=== PATIENT | female | born 1980 | race Caucasian/White ===

== ENCOUNTER 2020-09-01 09:20 | Day surgery (SDC) | payer SELFPAY, OTHER ==
--- NOTE | 2020-08-30 12:20 | PCM.HP.BLA ---
History and Physical Date of Admission: 09/01/20 Pre-Op History and Physical ? HPI: The patient is a 40 year old female presenting for question regarding surgical management for endometrial simple hyperplasia. Patient underwent a hysteroscopy, D&C, Hattie ablation in May 2020 the pathology specimen from that shows simple hyperplasia. Patient was counseled regarding inability to resample the endometrium after an ablation and consultation with [facility] oncology recommends proceeding with a hysterectomy for definitive therapy. ? She is scheduled for LAVH and bilateral salpingectomy, cystoscopy, for simple endometrial hyperplasia status post endometrial ablation on 09/01/20. Procedure discussed along with risks, benefits and complications. Other alternatives discussed for management. Consent form signed? Yes. ? ? PAST MEDICAL HISTORY PAST MEDICAL HISTORY Diagnosis Date ? Allergic rhinitis ? ? Depression with anxiety 03/08/2010 ? GERD (gastroesophageal reflux disease) ? ? Migraine with aura 03/08/2010 ? Morbid obesity with BMI of 50.0-59.9, adult (HCC) ? ? ROSIE (obstructive sleep apnea) 07/31/2018 ? DME [employer] ? ? PAST SURGICAL HISTORY PAST SURGICAL HISTORY Procedure Laterality Date ? D&C, DIAG AND/OR THERAPEUTIC ? 09/22/2001 ? Dilation & curettage ? D&C, DIAG AND/OR THERAPEUTIC ? 06/02/2020 ? HYSTEROSCOPY,W/ENDOMETRIAL ABLATION ? 06/02/2020 ? Hattie ablation ? REMOVAL GALLBLADDER ? ? ? Cholecystectomy ? ? ? CURRENT MEDICATIONS Current Outpatient Medications Medication Sig Dispense Refill ? ibuprofen (MOTRIN) 800 mg tablet Take 1 tablet by mouth every 8 hours as needed for Pain. Take with food. 60 tablet 3 ? omeprazole (PRILOSEC) 40 mg capsule Take 1 capsule by mouth once daily as needed. As directed 30 capsule 1 ? cyclobenzaprine (FLEXERIL) 10 mg tablet Take 1 tablet by mouth three times daily as needed for Muscle Spasm. 24 tablet 0 ? norethindrone (AYGESTIN) 5 mg tablet Take 2 tablets by mouth once daily. 60 tablet 5 ? valACYclovir (VALTREX) 1 gram tab Take 2 tablets by mouth q 12 HR. for 2 doses. 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 CPAP New set up: Settings 5 - 20 cm H2O, suitable mask per pt preference, chin strap, head gear, humidity, tubing, lifetime supplies. G47.33 Obstructive Sleep Apnea 1 Device 0 ? oxyCODONE-acetaminophen (PERCOCET) 5-325 mg tablet Take 1 tablet by mouth every 6 hours as needed for up to 5 days. FOR PAIN. 10 tablet 0 ? simethicone, chewable (MYLICON) 80 mg chewable tablet Take 1 tablet by mouth every 6 hours as needed. 30 tablet 0 ? docusate sodium (COLACE) 100 mg capsule Take 1 capsule by mouth twice daily. 60 capsule 2 ? No current facility-administered medications for this visit. ? ? ALLERGIES: Patient has no known allergies. ? PERSONAL HISTORY: SOCIAL HISTORY Social History ? Tobacco Use ? Smoking status: Current Every Day Smoker ? ? Packs/day: 0.50 ? ? Types: Cigarettes ? ? Start date: 04/26/2018 ? Smokeless tobacco: Never Used ? Tobacco comment: Working on quitting smoking Vaping Use ? Vaping Use: Never used Substance Use Topics ? Alcohol use: No ? Drug use: No ? FAMILY HISTORY: FAMILY HISTORY FAMILY HISTORY Problem Relation Age of Onset ? Diabetes Maternal Grandfather ? ? other ([place]SONS) Paternal Grandfather ? ? Diabetes Maternal Grandmother ? ? Hypertension Maternal Grandmother ? ? Diabetes Mother ? ? Hypertension Mother ? ? Diabetes Father ? ? other (Dementia) Father ? ? Front Temperal ? Heart Maternal Uncle ? ? NE ? Diabetes Maternal Uncle ? ? ? REVIEW OF SYMPTOMS: negative except as noted above PHYSICAL EXAMINATION: ? VITALS: Blood pressure 128/84, height 5' 3 (1.6 m), weight 236 lb (107 kg), last menstrual period 04/26/2020. ? GENERAL: The patient is well nourished, well hydrated in no acute distress. , The patient is oriented to time, place, and person. NECK: Supple. No lynphadenopathy, normal thyroid, no thyromegaly. LUNGS: Clear to auscultation bilaterally. no wheezes, rhonchi or rales HEART: Regular rate and rhythm, Normal heart sounds and No murmurs or gallops GENITALIA: deferred ? IMPRESSION: Simple endometrial hyperplasia s/p endometrial ablation ? PLAN: LAVH, Bilateral salpingectomy, cystoscopy ? Medicaid hysterectomy consent signed- pt verbalized understanding that this would make her sterile with no future childbearing capabilities. ? Pt has been counseled on risks/benefits and alternatives of surgery including but not limited to anesthesia, bleeding, infection, injury to pelvic structures including bowel, bladder, ureters and vessels. Pt wishes to proceed with surgery at this time. ? 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 ? ? I have reviewed and updated past medical and surgical history, medications and allergies Ro Vásquez MD ? 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 Signed Encounter Date: 08/03/2020 Expand AllCollapse All Expand All by Default Hide copied text Hover for details Pre-Op History and Physical ? HPI: The patient is a 40 year old female presenting for pre-operative visit. She is scheduled for Hysteroscopy, Hattie Ablation, laparoscopic bilateral salpingectomy with removal of essure coils, for AUB, heavy menses and desires removal of essure coils on 09/01/20. Procedure discussed along with risks, benefits and complications. Other alternatives discussed for management. Consent form signed? Yes. ? ? PAST MEDICAL HISTORY PAST MEDICAL HISTORY Diagnosis Date ? Anemia ? ? WITH ? Spontaneous without mention of complication 04/07/2007 ? Miscarriage ? Varicosities ? ? RIGHT LEG ? ? PAST SURGICAL HISTORY PAST SURGICAL HISTORY Procedure Laterality Date ? DELIVERY ONLY ? 10/28/13 ? , low transverse ? D&C, DIAG AND/OR THERAPEUTIC ? 03/27, 04/07/2007 ? Dilation & curettage ? ESSURE ? 2013 ? REM LESION FACE,EAR,EYEL <5MM ? 09/04/13 ? Exc. indu cyst nasal bridge ? ? ? CURRENT MEDICATIONS Current Outpatient Medications Medication Sig Dispense Refill ? ferrous sulfate (IRON) 325 mg (65 mg iron) tablet Take 2 tablets by mouth every other day. Take with source of vitamin C (Patient taking differently: As Needed ) 60 tablet 2 ? norgestimate 0.25 mg-ethinyl estradiol 35 mcg (SPRINTEC) 0.25-35 mg-mcg per tablet Take 1 tablet by mouth once daily. 1 Package 11 ? CALCIUM CARBONATE/VITAMIN D3 (CALCIUM + D ORAL) Take by mouth once daily. ? ? ? MULTIVITAMIN ORAL Take by mouth. ? ? ? ibuprofen (MOTRIN) 600 mg tablet Take 1 tablet by mouth every 6 hours as needed. 30 tablet 0 ? simethicone, chewable (MYLICON) 80 mg chewable tablet Take 1 tablet by mouth every 6 hours as needed. 30 tablet 0 ? No current facility-administered medications for this visit. ? ? ALLERGIES: Patient has no known allergies. ? PERSONAL HISTORY: SOCIAL HISTORY Social History ? Tobacco Use ? Smoking status: Never Smoker ? Smokeless tobacco: Never Used Vaping Use ? Vaping Use: Never used Substance Use Topics ? Alcohol use: No ? Drug use: No ? FAMILY HISTORY: FAMILY HISTORY FAMILY HISTORY Problem Relation Age of Onset ? No Known Problems Mother ? ? Hysterectomy ? Lipids Father ? ? Cancer Father ? ? Skin ? No Known Problems Brother ? ? No Known Problems Brother ? ? No Known Problems Brother ? ? No Known Problems Brother ? ? No Known Problems Sister ? ? Cancer Maternal Grandmother ? ? Skin ? No Known Problems Daughter ? ? No Known Problems Daughter ? ? No Known Problems Son ? ? No Known Problems Daughter ? ? No Known Problems Daughter ? ? Cancer Maternal Uncle ? ? Cancer Paternal Uncle ? ? BRAIN CANCER ? No Known Problems Son ? ? ? REVIEW OF SYMPTOMS: negative except as noted above PHYSICAL EXAMINATION: ? VITALS: Blood pressure 122/78, weight 166 lb (75.3 kg), last menstrual period 07/24/2020. ? GENERAL: The patient is well nourished, well hydrated in no acute distress. , The patient is oriented to time, place, and person. NECK: full range of motion GENITALIA: Normal external genitalia, Urethral meatus normal, Bladder nontender, normal vagina and normal vaginal tone, normal cervix, normal WET PREP: Not indicated ? IMPRESSION: AUB, heavy menses, essure coils in place ? PLAN: Hysteroscopy, Hattie endometrial ablation, laparoscopic bilateral salpingectomy with removal of essure coils ? Pt has been counseled on risks/benefits and alternatives of surgery including but not limited to anesthesia, bleeding, infection, injury to pelvic structures including bowel, bladder, ureters and vessels. Pt wishes to proceed with surgery at this time.Reviewed possible failure of Ablation procedure. ? Declines further hormonal therapy Covid testing reviewed- has not been vaccinated PRE OP consent signed Post op meds ordered EMB pending ? ? ? I have reviewed and updated past medical and surgical history, medications and allergies Ro Vásquez MD Office Visit on 08/03/2020 Office Visit on 08/03/2020 Note shared with patient
[2020-08-31 09:56] LABS: Hematocrit 38.3 % (37-47); Hemoglobin 12.7 g/dL (12.0-15.0); Mean Corp Hgb Conc 33.2 g/dL (32-36); Mean Corpuscular Hgb 28.4 pg (27.0-32.0); Mean Corpuscular Volume 85.7 fL (81-99); Mean Platelet Vol. 9.4 fl (6.2-12.0); Platelet Count 293 K/mm3 (150-450); RBC Distribution Width SD 40.7 fl (35.1-43.9); Red Blood Count 4.47 M/mm3 (4.2-5.4); White Blood Count 6.4 K/mm3 (4.4-11.0)
[2020-09-01] VITALS (7 sets, daily range): BP systolic 108–129; BP diastolic 72–92; PULSE 55–83; RESP 16–18; TEMP 36.1–36.6; O2SAT 100; BMI 29.9
[2020-09-01 10:00] LABS: Internal QC Validated? YES +Cl - CLEAR BKGD; Pregnancy, Urine Negative Negative
[2020-09-01] MEDS: Lactated Ringers 1,000 ML 100 ML IV (10:16)
--- NOTE | 2020-09-01 10:36 | PCM.HP.BLA ---
History and Physical Date of Admission: 09/01/20 re-Op History and Physical HPI: The patient is a 40 year old female presenting for pre-operative visit. She is scheduled for Hysteroscopy, Hattie Ablation, laparoscopic bilateral salpingectomy with removal of essure coils, for AUB, heavy menses and desires removal of essure coils on 09/01/20. Procedure discussed along with risks, benefits and complications. Other alternatives discussed for management. Consent form signed? Yes. PAST MEDICAL HISTORY PAST MEDICAL HISTORY Diagnosis Date ? Anemia WITH ? Spontaneous without mention of complication 04/07/2007 Miscarriage ? Varicosities RIGHT LEG PAST SURGICAL HISTORY PAST SURGICAL HISTORY Procedure Laterality Date ? DELIVERY ONLY 10/28/13 , low transverse ? D&C, DIAG AND/OR THERAPEUTIC 03/27, 04/07/2007 Dilation & curettage ? ESSURE 2013 ? REM LESION FACE,EAR,EYEL <5MM 09/04/13 Exc. indu cyst nasal bridge CURRENT MEDICATIONS Current Outpatient Medications Medication Sig Dispense Refill ? ferrous sulfate (IRON) 325 mg (65 mg iron) tablet Take 2 tablets by mouth every other day. Take with source of vitamin C (Patient taking differently: As Needed ) 60 tablet 2 ? norgestimate 0.25 mg-ethinyl estradiol 35 mcg (SPRINTEC) 0.25-35 mg-mcg per tablet Take 1 tablet by mouth once daily. 1 Package 11 ? CALCIUM CARBONATE/VITAMIN D3 (CALCIUM + D ORAL) Take by mouth once daily. ? MULTIVITAMIN ORAL Take by mouth. ? ibuprofen (MOTRIN) 600 mg tablet Take 1 tablet by mouth every 6 hours as needed. 30 tablet 0 ? simethicone, chewable (MYLICON) 80 mg chewable tablet Take 1 tablet by mouth every 6 hours as needed. 30 tablet 0 No current facility-administered medications for this visit. ALLERGIES: Patient has no known allergies. PERSONAL HISTORY: SOCIAL HISTORY Social History Tobacco Use ? Smoking status: Never Smoker ? Smokeless tobacco: Never Used Vaping Use ? Vaping Use: Never used Substance Use Topics ? Alcohol use: No ? Drug use: No FAMILY HISTORY: FAMILY HISTORY FAMILY HISTORY Problem Relation Age of Onset ? No Known Problems Mother Hysterectomy ? Lipids Father ? Cancer Father Skin ? No Known Problems Brother ? No Known Problems Brother ? No Known Problems Brother ? No Known Problems Brother ? No Known Problems Sister ? Cancer Maternal Grandmother Skin ? No Known Problems Daughter ? No Known Problems Daughter ? No Known Problems Son ? No Known Problems Daughter ? No Known Problems Daughter ? Cancer Maternal Uncle ? Cancer Paternal Uncle BRAIN CANCER ? No Known Problems Son REVIEW OF SYMPTOMS: negative except as noted above PHYSICAL EXAMINATION: VITALS: Blood pressure 122/78, weight 166 lb (75.3 kg), last menstrual period 07/24/2020. GENERAL: The patient is well nourished, well hydrated in no acute distress. , The patient is oriented to time, place, and person. NECK: full range of motion GENITALIA: Normal external genitalia, Urethral meatus normal, Bladder nontender, normal vagina and normal vaginal tone, normal cervix, normal WET PREP: Not indicated IMPRESSION: AUB, heavy menses, essure coils in place PLAN: Hysteroscopy, Hattie endometrial ablation, laparoscopic bilateral salpingectomy with removal of essure coils Pt has been counseled on risks/benefits and alternatives of surgery including but not limited to anesthesia, bleeding, infection, injury to pelvic structures including bowel, bladder, ureters and vessels. Pt wishes to proceed with surgery at this time.Reviewed possible failure of Ablation procedure.
--- NOTE | 2020-09-01 10:55 | OP.PCM_ITS ---
Problems Associated Problem List Diagnoses (1) Abnormal uterine bleeding (AUB): (2) Encounter for removal of Essure: (3) Heavy menses: Report of Operation Date of Procedure: 09/01/20 Pre-Operative Diagnosis: AUB, Heavy menses, Desires removal of essure coils Post-Operative Diagnosis: same Surgery/Procedure Performed:: hysteroscopy, Hattie ablation, bilateral salpingectomy with removal of intact essure Surgeon: Ro Chao Type of Anesthesia: General Special Medications: 0.5% maracine Specimen's removed: Bilateral fallopian tubes with ESSURE COILS Drains: none Estimated Blood Loss (mL): 5 Fluids Replaced: 800 Description of Procedure: After informed consent was obtained patient taken to the operating room she is placed in supine position. anesthesia obtained. she is prepped draped normal sterile fashion. Bladder was drained prior to the start of the procedure. At this time the weighted speculum was placed the posterior fornix of the vagina then a single-tooth tenaculum was used to grasp the anterior lip of the cervix. At this time the uterus was sounded to approximately 9 cm the endocervical canal sounded to 4cm. Next cervix was dilated in incremental fashion. Once adequate dilatation was achieved the hysteroscope was inserted using normal saline as distention medium. On hysteroscopy no abnormalities appreciated. small part of essure coil noted at right cornua. Both tubal ostia were visualized. At this time the Hattie device was opened. The Hattie was set at 5cm. The device was activated. Prior to activation the field test was performed and cavity was intact. The device was then fired and activated for 120 seconds. Once the 120 seconds was completed the device was removed intact and the tenaculum was removed. Good hemostasis was appreciated. Weighted speculum was removed. uterine manipulator placed. Legs then placed in parallel with the abdomen the tenaculum and the weighted speculum were removed. 2 towel clamps were placed at level of umbilicus. Marcaine was injected infraumbilical and a small incision was made. The 5 mm trocar was placed under direct visualization. CO2 gas was used to insufflate the intra-abdominal cavity. Upon inspection no gross abnormalities appreciated- the uterus tubes and ovaries appeared to be normal. At this time then the LLQ and RLQ ports were placed First Marcaine was injected and small incision was mad e a knife and the 5 mm trocars were placed. At this time then tubes were traced back to the fimbriated ends. Ligasure was used to coagulate and ligate along mesosalpynx bilaterally until tubes removed completely. Good hemostasis was appreciated. At this time procedure was deemed complete successful. The gas was desufflated on from the intra-abdominal cavity. The trochars were removed. Dermabond glue was placed. Instrument lap and needle counts were correct ?2. The uterine manipulator was removed. Vaginal sweep was performed it was negative. There were no complications anticipated normal postoperative course for this patient. Grafts/Implants Used: none Procedure Start Time: 11:37 Procedure Stop Time: 12:00 Complications none Admit VTE Documentation VTE Present on Admission: Yes VTE Mechan Device Prophylaxis: SCD's VTE Pharm Prophylaxis ordered?: No Reason prophylaxis not ordered:: Procedure Not Indicated
--- NOTE | 2020-09-01 10:55 | FALS_PTH ---
PATIENT: MARGO MARTIN LOC: [facility] [place][id number] AGE/SX: 40/F ROOM: RE09/01/[address]: Dr. Ro Chao, MDDOB: 1980 BED: DIS: 09/01/2020 SPEC #: [id number] RECD: 09/01/20 15:06 STATUS: JOSE DANIEL YANNICK #: [id number] BRITTNEY: 09/01/20 10:[address]: Ro Chao DEPT: SURGICAL PATHOLOGY RECD BY: Brigette Santamaria ENTERED: 09/02/20 07:55 SP TYPE: FALL TUBES OTHR DR: Dr. Blaze Cesar DO Tissues: Fallopian tube Procedures: Surgery Specimen Level II HEADER OPERATION: Laparoscopic salpingectomy, hysteroscopy endometrial ablation PRE-OP DIAGNOSIS: Abnormal uterine bleeding, heavy menses, Essure coils in place TISSUE SUBMITTED: Bilateral fallopian tubes with Essure MICROSCOPIC DIAGNOSIS Bilateral fallopian tubes, salpingectomy: Bilateral fallopian tubes, no pathologic diagnosis. See comment. CRISTIAN:inder 09/05/2020 COMMENT Metallic device consistent with Essure device are not seen grossly either in the fallopian tube or in the container. This case is discussed with Dr. Chao on 09/05/20. MICROSCOPIC DESCRIPTION Slides are reviewed. GROSS DESCRIPTION Received in fixative is one container labeled with the patient's name and designated bilateral fallopian tubes with Essure. The specimen consists of two fallopian tubes with an average length of 6.5 cm and has an average diameter of 0.5 cm. Both fallopian tubes have normal fimbriated ends. No mass lesions are identified. Serial sections does not reveal any metallic devices. Lean Specialist sections are submitted in two cassettes as follows: 1 - one fallopian tube, 2 - the other fallopian tube. / AM:inder 09/02/20 TC:4 CPT: 09066 x2
--- NOTE | 2020-09-01 10:57 | PCM.DC ---
Discharge Instructions Diet Discharge Diet: No restrictions Activity May resume sexual activity in: 2 weeks Lifting Restrictions: 20-25 lbs Dressing / Incision Call your doctor if your incision/area has: Continuous Slow Oozing, Sudden Increased Bleeding, Increased Pain/ Swelling, Increased Redness, Foul Smelling Discharge and Swelling at the incision site Call your doctor if you observe: Fever of 101 or Higher, Inability to urinate, Inability to have a bowel movement, Using more than 1 pad per hour and Uncontrolled pain Additional Dressing/Incision Instructions:: You have skin glue over your incision sites, do not pick off. You may shower and let the soap and water run over the incision sites and dab dry. Follow Up Care Please Follow Up With: Ro Chao MD When: 1-2 weeks post OP if you need an appointment please call [phone] Test Results: Test results from this visit will be discussed in further detail at your follow-up appointment, if applicable. Discharge Plan Admission Attending Provider: Ro Chao Primary Care Provider: Blaze Cesar Discharge Orders/Prescriptions Prescriptions: No Action multivitamin Tablet 1 tab PO DAILY RF: 0 norgestimate-ethinyl estradiol [Sprintec (28)] 0.25-35 mg-mcg Tablet 1 tab PO DAILY RF: 0 Referrals / Follow Up: Blaze Cesar DO [Primary Care Provider] - Disposition Disposition (needs filled in before D/C Order can be placed): Home, self care
[2020-09-01] MEDS: Bupivacaine Mpf 0.5% 30 ML VIAL (11:37)
== END 2020-09-01 14:52 | disposition home or self-care (01) ==
LOC: SDC 09:21 → AC 09:22
PROVIDERS: Anesthesiology; PCP Family Medicine; Referring Provider Obstetrics & Gynecology; Visit Provider Obstetrics & Gynecology
PROC: 0U5B8ZZ Destruction of Endometrium, Via Natural or Artificial Opening Endoscopic (ICD-10-PCS; CPT 58558; principal; 2020-09-01 10:40)
DX: N93.9 Abnormal uterine and vaginal bleeding, unspecified (principal); N92.0 Excessive and frequent menstruation with regular cycle; Z20.822 Contact with and (suspected) exposure to COVID-19
CPT/HCPCS: 00952; 58301; 58563; 58661; 36415; 81025; 85027; 87426; 88302; C9803; J7120; J2405